=== PATIENT | male | born 1985 | race Caucasian/White ===

== ENCOUNTER 2018-06-10 21:46 | Emergency (ER) | payer SELFPAY ==
[~2018-06-10] VITALS: Ht 167.6 cm; Wt 74.8 kg
--- NOTE | 2018-06-10 21:57 | ED.ADGEN ---
Adult General Chief Complaint Chief Complaint ".. I stubbed my toe.. ".. " I broke it and skinned it up...".." I don't want any shots..." HPI HPI Patient is a 32 year old MALE who presents with above hx and complaints of injury to Rt. 4th and 5th toes. 5th toe is pointing up wards and obviously dislocated. Pt. does not remember his last tetanus. Pt. has abraded dorsal area of both toes. Distal sensation intact. Some obvious dusky capillary refill on 5th toe. Pt. denies any other injury. No upper leg tenderness. Review of Systems Review of Systems Constitutional: Denies fever or chills [] Eyes: Denies change in visual acuity, redness, or eye pain [] HENT: Denies nasal congestion or sore throat [] Respiratory: Denies cough or shortness of breath [] Cardiovascular: No additional information not addressed in HPI [] GI: Denies abdominal pain, nausea, vomiting, bloody stools or diarrhea [] : Denies dysuria or hematuria [] Musculoskeletal: Denies back pain or joint pain []complaints of injury to right fourth and fifth toes Integument: Denies rash or skin lesions [] Neurologic: Denies headache, focal weakness or sensory changes [] Endocrine: Denies polyuria or polydipsia [] All other systems were reviewed and found to be within normal limits, except as documented in this note. Family History Family History Noncontributory Current Medications Current Medications Current Medications Medications (Trade) Dose Ordered Sig/Lenora Start Time Stop Time Status Last Admin Dose Admin Cephalexin HCl (Keflex) 500 mg 1X ONCE 06/10/18 22:30 06/10/18 22:33 DC 06/10/18 23:03 500 MG Ketorolac Tromethamine (Toradol Im) 60 mg 1X ONCE 06/10/18 22:30 06/10/18 22:33 DC Mupirocin (Bactroban) 1 kavon BID 06/10/18 22:30 06/10/18 23:41 DC 06/10/18 23:03 1 KAVON Oxycodone/ Acetaminophen (Percocet 5/325) 2 tab 1X ONCE 06/10/18 22:30 06/10/18 22:33 DC 06/10/18 23:03 2 TAB Tetanus/ Diphtheria Toxoids Adsorbed (Tenivac Vial) 0.5 ml ONCE ONCE 06/10/18 22:30 06/10/18 22:33 DC Allergies Allergies Allergies Coded Allergies Type Severity Reaction Last Updated Verified No Known Drug Allergies 06/10/18 No Physical Exam Physical Exam Constitutional: in acute distress, non-toxic appearance. [] HENT: Normocephalic, atraumatic, bilateral external ears normal, oropharynx moist, no oral exudates, nose normal. [] Eyes: PERRLA, EOMI, conjunctiva normal, no discharge. [] Neck: Normal range of motion, no tenderness, supple, no stridor. [] Cardiovascular:Heart rate regular rhythm, no murmur [] Lungs & Thorax: Bilateral breath sounds equal with scattered wheezes on auscultation [] Abdomen: Bowel sounds normal, soft, no tenderness, no masses, no pulsatile masses. [] Skin: Warm, dry, no erythema, no rash. [] Back: No tenderness, no CVA tenderness. [] Extremities: No tenderness, no cyanosis, no clubbing, ROM intact, no edema. [] Except findings on right fourth and fifth toes as per history of present illness Neurologic: Alert and oriented X 3, normal motor function, normal sensory function, no focal deficits noted. [] Psychologic: Affect normal, judgement normal, mood normal. [] Current Patient Data Vital Signs Vital Signs Date Time Temp Pulse Resp B/P (MAP) Pulse Ox O2 Delivery O2 Flow Rate FiO2 06/10/18 23:03 18 97 Room Air EKG EKG [] Radiology/Procedures Radiology/Procedures My interpretation of x-ray shows edema to right fourth and fifth toes. Obvious dislocation and fracture of fifth toe[] Course & Med Decision Making Course & Med Decision Making Pertinent Labs and Imaging studies reviewed. (See chart for details) Procedure note.- Fifth toe reduced with gentle traction. Return of distal capillary refill returned shortly after reduction. Pt. did receive additional blocks the fourth toe with lidocaine.. Abrasions to toe cleaned with irrigation , scrubbing and Betadine. Bactrim applied to abrasions. Gauze dressing applied. Patient keep abrasions clean and dry. Polysporin 4 times a day. Patient to wear a stiff shoe. Follow-up primary care. Return if any concerns. Elevation may help with pain tonight. Take Tylenol and ibuprofen for pain. May need soak with peroxided to remove dressing. Must wear white sock s until abrasions are healed. Take Keflex 500 three times a day. [] Final Impression Final Impression 1. Rt 5th toe fx and dislocation[] 2. Abrasions to Rt. 4 and 5 toes Dragon Disclaimer Dragon Disclaimer This electronic medical record was generated, in whole or in part, using a voice recognition dictation system. AMANDA CALDERON MD Jun 10, 2018 21:57
[2018-06-10] MEDS ORDERED: CEPH-264 PO (22:28)
[2018-06-10] MEDS ORDERED: CEPHALEXIN 250 MG CAPSULE PO ONE (22:30)
[2018-06-10] MEDS ORDERED: TETANUS AND DIPHTHERIA TOX/PF 0.5 ML VIAL. VAX IM ONE (22:30)
[2018-06-10] MEDS ORDERED: oxyCODONE/APAP 5/325 1 TAB TABLET PO ONE (22:30)
[2018-06-10] MEDS ORDERED: KETOROLAC 60 MG/2 ML VIAL. IM ONE (22:30)
[2018-06-10] MEDS ORDERED: MUPIROCIN 2% TOPICAL OINTMENT 22GM TUBE. TP SCH (22:30)
[2018-06-10 23:30] VITALS: BP 122/87
--- NOTE | 2018-06-10 23:57 | RAD ---
Three-view right foot dated 06/10/2018. No comparison available. Clinical data indication: Pain after injury. FINDINGS: 3 views of right foot show a transverse fracture through the base of the fifth proximal phalanx with moderate lateral angulation at the fracture site. No additional fractures are seen. Alignment otherwise anatomic. IMPRESSION: Angulated fracture at the base of the fifth proximal phalanx. Electronically signed by: Mor Polk MD (06/10/2018 11:54 PM) [facility]
--- NOTE | 2018-06-10 23:58 | RAD ---
Three-view right foot dated 06/10/2018. Comparison made to study dated same day. Clinical indication: Follow-up fracture after reduction. FINDINGS: Again noted is a transverse fracture through the base of fifth proximal phalanx. There is been some improvement in lateral lingula age of the fracture site. No additional fractures are seen. Alignment anatomic. IMPRESSION: Angulated fifth proximal phalanx fracture, mildly improved after reduction. Electronically signed by: Mor Polk MD (06/10/2018 11:55 PM) [facility]
== END 2018-06-10 23:41 | disposition home or self-care (01) ==
LOC: ER 21:46
DX: S92.511A Displaced fracture of proximal phalanx of right lesser toe(s), initial encounter for closed fracture (principal); S90.414A Abrasion, right lesser toe(s), initial encounter; W22.8XXA Striking against or struck by other objects, initial encounter; Y93.89 Activity, other specified; Y92.89 Other specified places as the place of occurrence of the external cause; Y99.8 Other external cause status
CPT/HCPCS: 28515; 73630; 99284